=== PATIENT | female | born 1965 | race Caucasian/White ===

== ENCOUNTER 2016-10-17 23:50 | Emergency (ER) | payer MEDICARE ==
[~2016-10-17] VITALS: Ht 167.6 cm; Wt 129.6 kg
[~2016-10-17 23:50] MED LIST: BENTYL10 MG PO; CIPRO500 MG PO; CIPROFLOXACIN500 M1 PO; FLEXERIL10 MG PO; METRONIDAZOLE500 MG PO; MOBIC15 MG PO; MORPHINE SULFAT15 M1 PO; MOTRIN400 MG PO; NAPROSYN500 MG PO; NEURONTIN300 MG PO; OXYCODONE HCL10 MG PO; PERCOCET 5/31 TABLET PO; PREDNISONE20 MG PO; PROMETHAZINE HC25 M1 PO; ULTRAM50 MG PO; VALIUM5 MG PO; ZOFRAN4 MG PO
[2016-10-18 01:15] LABS: HEMATOCRIT 41.9 % (36.0-46.0); MCH 29.7 PG (29.0-34.0); MCHC 32.7 G/DL (30.0-36.0); MCV 90.7 FL (83-99); MEAN PLAT.VOLUME 9.3 uM^3 (9.5-12.4); PLATELET COUNT 257 K/uL (156-360); RBC DIS.WIDTH-SD 42.5 % (39-53); RED BLOOD COUNT 4.62 M/uL (3.80-5.20); WHITE BLOOD COUNT 8.1 K/uL (4.1-10.2)
[2016-10-18 01:17] LABS: CHLORIDE 109 mEq/L (99-109); POTASSIUM 4.2 mEq/L (3.7-5.4); SODIUM 141 mEq/L (136-147)
[2016-10-18 01:19] LABS: GLUCOSE 111 mg/dL (70-99)
[2016-10-18 01:20] LABS: ANION GAP 9 MEQ/L (2-14)
[2016-10-18 01:21] LABS: TOTAL BILIRUBIN 0.3 mg/dL (0.0-1.0)
[2016-10-18 01:22] LABS: ALKALINE PHOSPHATASE 82 IU/L (3-129)
[2016-10-18 01:23] LABS: GFR ESTIMATE (CALCULATED) > 59 mL/min/
[2016-10-18 01:24] LABS: UREA NITROGEN (BUN) 16 mg/dL (9-23)
[2016-10-18 01:46] LABS: INFLUENZA A VIRAL ANTIGEN NEGATIVE; INFLUENZA B VIRAL ANTIGEN NEGATIVE
[2016-10-18 02:11] LABS: ADD MIUA? YES; BILIRUBIN NEGATIVE; BLOOD LARGE; COLOR YELLOW ((YELLOW)); GLUCOSE (STRIP) NEGATIVE; KETONES NEGATIVE; LEUKOCYTES SMALL; NITRITE NEGATIVE; PH, URINE 5.5 (5-8); PROTEIN (STRIP) TRACE; SPECIFIC GRAVITY 1.028 (1.000-1.030); UROBILINOGEN 0.2 MG/DL (0.2-1.0)
[2016-10-18 02:25] LABS: BACTERIA 1+ /HPF; CASTS NONE SEEN /LPF; CRYSTALS NONE SEEN; EPITHELIAL CELLS 1+ /HPF; MUCUS NONE SEEN /LPF; RED BLOOD CELLS NONE SEEN /HPF (0-5); UCUL ADDED? NO; WHITE BLOOD CELLS 0-5 /HPF (0-5)
[2016-10-18] MEDS ORDERED: ROBITUSSIN AC,T10 ML PO (02:36)
[2016-10-18] MEDS ORDERED: ZOFRAN ODT4 MG PO (02:36)
[2016-10-18 02:50] VITALS: BP 125/69
== END 2016-10-18 02:51 | disposition home or self-care (01) ==
LOC: EME 23:50
DX: B34.9 Viral infection, unspecified (principal); J02.9 Acute pharyngitis, unspecified; R50.9 Fever, unspecified; R52 Pain, unspecified; I10 Essential (primary) hypertension; F17.200 Nicotine dependence, unspecified, uncomplicated
CPT/HCPCS: 80053; 81003; 85027; 87502; 87651 90; 99281; 99284

== ENCOUNTER 2018-05-08 17:12 | Emergency (ER) | payer OTHER ==
[~2018-05-08] VITALS: Ht 167.6 cm; Wt 143.1 kg
[~2018-05-08 17:12] MED LIST changes: +ROBITUSSIN AC,T10 ML PO; +ZOFRAN ODT4 MG PO
[2018-05-08 18:32] LABS: HEMATOCRIT 41.9 % (36.0-46.0); HEMOGLOBIN 13.8 G/DL (11.9-15.5); MCH 30.1 PG (29.0-34.0); MCHC 32.9 G/DL (30.0-36.0); MCV 91.5 FL (83-99); PLATELET COUNT 306 K/uL (156-360); RBC DIS.WIDTH-CV 12.5 % (11.8-14.6); RBC DIS.WIDTH-SD 41.6 % (39-53); RED BLOOD COUNT 4.58 M/uL (3.80-5.20); WHITE BLOOD COUNT 7.7 K/uL (4.1-10.2)
[2018-05-08 18:44] LABS: CHLORIDE 104 mEq/L (99-109); POTASSIUM 4.3 mEq/L (3.7-5.4); SODIUM 139 mEq/L (136-147)
[2018-05-08 18:46] LABS: GLUCOSE 163 mg/dL (70-99)
[2018-05-08 18:50] LABS: CREATININE 0.8 mg/dL (0.6-1.3); GFR ESTIMATE (CALCULATED) > 59 mL/min/
[2018-05-08 18:51] LABS: UREA NITROGEN (BUN) 12 mg/dL (9-23)
[2018-05-08] MEDS ORDERED: FUTURO RESTORI1 EACH MC (19:38)
[2018-05-08] MEDS ORDERED: ULTRAM50 MG PO (19:39)
[2018-05-08] MEDS ORDERED: NAPROXEN500 MG PO (19:39)
[2018-05-08 19:52] VITALS: BP 179/89
== END 2018-05-08 19:53 | disposition home or self-care (01) ==
LOC: EME 17:12
PROVIDERS: Physician Assistant
DX: S83.91XA Sprain of unspecified site of right knee, initial encounter (principal); X50.1XXA Overexertion from prolonged static or awkward postures, initial encounter; R60.0 Localized edema; I10 Essential (primary) hypertension; F17.200 Nicotine dependence, unspecified, uncomplicated; Z96.652 Presence of left artificial knee joint; Z90.49 Acquired absence of other specified parts of digestive tract; Z98.51 Tubal ligation status; Z88.8 Allergy status to other drugs, medicaments and biological substances
CPT/HCPCS: 73564; 80048; 85027; 93971; 99281; 99284